=== PATIENT | female | born 1980 | race Caucasian/White ===

== ENCOUNTER 2023-12-23 05:11 | Emergency (ER) | payer BC, SELFPAY ==
[2023-12-23 05:14] VITALS: BP 111/73
[2023-12-23 05:27] VITALS: BMI 21.1
[2023-12-23 05:32] VITALS: BP 100/65
[2023-12-23 06:00] VITALS: BP 91/64
--- NOTE | 2023-12-23 06:00 | ED.GENMED ---
History of Present Illness
General
Chief Complaint: Dizziness
Time Seen by Provider: 12/23/23 05:59
History of Present Illness
History of Present Illness:
HPI: Patient presents with dizziness associated with nausea. She woke up around 2 AM this morning felt unwell and turned and suddenly had dramatic vertiginous symptoms. Her symptoms did spontaneously improve upon arrival here. She did not vomit.
She has no associated headache. She tried the Sergio maneuver at home which seems to have made things worse initially but now feels improved.
EXAM:
GENERAL: Well appearing in no distress
HEENT: Moist oral mucosa
CARDIOVASCULAR: No murmurs, normal heart rate, regular rhythm, No chest wall tenderness
PULMONARY: No respiratory distress, breath sounds are clear and equal
ABDOMEN: Soft with no peritoneal signs, no tenderness
NEUROLOGIC: Excellent strength all extremities, no coordination deficits, normal finger-nose testing, no spontaneous nystagmus
PSYCHIATRIC: Appropriate mental status, normal insight and judgement
EXTREMITIES: Nontender, no edema, moves all extremities equally
SKIN: No rash, no lesions
TIME OF INITIAL ENCOUNTER: 6:05 AM
NUMBER AND COMPLEXITY OF PROBLEMS ADDRESSED AT THE ENCOUNTER
� Chronic conditions affecting care: Hypothyroidism
� Acute Exacerbation and/or Progression of Chronic Illness: This is an acute problem
� Differential Diagnosis includes: BPPV, CVA very unlike, dissection very unlikely
AMOUNT AND/OR COMPLEXITY OF DATA TO BE REVIEWED AND ANALYZED
� I performed an independent evaluation of and my interpretation is:
EKG:
CT:
X-rays:
Laboratory Studies: CBC unremarkable, chemistries unremarkable
Other:
� Review of other/old records: No old records available for review in [facility]
� Clinical information was obtained by an independent historian: I spoke to the at bedside
� Prescriptions/Medications Considered but not given: Considered meclizine
� Further testing considered but not performed: Considered [place]-Hallpike maneuver however given the patient's severe symptoms earlier she preferred to hold off on any testing that could make her symptoms recur/worsen
RISK OF COMPLICATIONS AND/OR MORBIDITY OR MORTALITY OF PATIENT MANAGEMENT
� Social determinants of health affecting care: Lives at home with family
� Discussion with other providers:
� Escalation of care including admission/observation vs risk of discharge considered: Based on the patient's description of what happened this morning, strongly suspect BPPV. She wanted to hold off on [place]-Hallpike maneuver. Her
neurologic examination is unremarkable. Of note, the patient's blood pressure is low however the patient states that her blood pressure is frequently in the 90-100 range. She was able to walk in the emergency department without any difficulty.
Phy Exam
Physical Exam
Physical Exam:
See HPI
Course
Orders/Labs/Results
Orders:
Orders
12/23/23 05:53
Complete Blood Count/With Diff Urgent
Comprehensive Metabolic Panel Urgent
Abnormal Lab Results
12/23/23
05:53
Hct 36.3 L %
(37.0-47.0)
MCV 78.4 L fL
(81.0-99.0)
Lymphocytes % 19.8 L %
(20.5-51.1)
Glucose 102 H mg/dl
(70-99)
12/23/23 05:53
12/23/23 05:53
Vital Signs
Initial and Last Documented VS:
Initial Vital Signs
Temp Pulse Resp BP Pulse Ox
97.9 F 70 14 111/73 100
12/23/23 05:14 12/23/23 05:14 12/23/23 05:14 12/23/23 05:14 12/23/23 05:14
Last Documented Vital Signs
Temp Pulse Resp BP Pulse Ox
97.9 F 70 14 91/64 98
12/23/23 05:14 12/23/23 05:14 12/23/23 05:14 12/23/23 06:00 12/23/23 06:15
*Critical Care Note
Total Time (30-74mins, 75-104mins- exclusive of procedures): Not Applicable
ED Attending Note
-
Portions of this chart may have been created with voice recognition software.� Occasional wrong word or��sound alike� substitutions may have occurred due to the inherent limitations of voice recognition software.
Discharge Plan
Departure
Patient Disposition: Home (Routine Discharge)
Date of Disposition: 12/23/23
Time of Disposition: 06:54
Patient with high blood pressure during this ER visit?: Yes
Discharge Problem:
Benign paroxysmal positional vertigo
Instructions: Vestibular Exercises, Vertigo ED
Referrals:
Renée Bowman CRNP [Family Provider] -
Agustín Deng MD [Active] - Follow up in 10 days
Activity Restrictions/Additional Instructions:
Consider following up with ENT such as Dr. Deng if symptoms persist/worsen. I think would be reasonable to try the Sergio maneuver again in the future. Consider Unisom/doxylamine to help sleep as this type of medication frequently helps with
vertigo as well. Return here if worse or other concerns. Electrolytes, kidney function, complete blood cell count are all normal.
Interventions
Interventions:
*Risk Screen - Suicide Last Done: 12/23/23 05:14
*General Assessment Last Done: 12/23/23 05:14
*Neglect/Abuse Screening Last Done: 12/23/23 05:14
ED- Fall Risk Assessment Last Done: 12/23/23 05:14
*ED COVID-19 Vaccine History Last Done: 12/23/23 05:14
*Nursing Disposition Last Done: 12/23/23 07:09
ED- Neurological Assessment Last Done: 12/23/23 05:27
ED Swallowing Screen Last Done: 12/23/23 05:55
Discharge Date and Time
Discharge Date/Time: 12/23/23 07:10
Print Language: DANISH
[2023-12-23 06:01] LABS: % Eosinophils 0.5 % (0-6); % Immature Granulocytes 0.3 % (0-0.5); % Lymphocytes 19.8 % (20.5-51.1); % Monocytes 5.4 % (1.7-9.3); Absolute Basophils 0.1 10^3/uL (0-0.2); Absolute Lymphocytes 1.5 10^3/uL (1.2-3.4); Absolute Monocytes 0.4 10^3/uL (0.1-0.6); Absolute Neutrophils 5.7 10^3/uL (1.4-6.5); Hematocrit 36.3 % (37.0-47.0); Hemoglobin 12.5 g/dL (12.0-16.0); Mean Corp Hgb Conc. 34.4 g/dL (33.0-37.0); Mean Corpuscular Volume 78.4 fL (81.0-99.0); Nucleated Red Blood Cells % 0 %; Platelet Count 237 10^3/uL (130-400); Red Blood Cell Count 4.63 10^6/uL (4.20-5.40); Red Cell Dist. Width 13.2 % (11.5-14.5); White Blood Cell Count 7.7 10^3/uL (4.8-10.8)
[2023-12-23 06:51] LABS: ALT (SGPT) 14 U/L (0-35); AST (SGOT) 24 U/L (14-36); Albumin 4.2 g/dl (3.5-5.0); Alkaline Phosphatase 66 U/L (38-126); Blood Urea Nitrogen 12 mg/dl (7-17); Carbon Dioxide 23 mmol/L (22-30); Chloride 106 mmol/L (98-107); Estimated Creatinine Clearance 101 ml/min; Glucose 102 mg/dl (70-99); Potassium 3.9 mmol/L (3.5-5.1); Sodium 139 mmol/L (135-145); Total Bilirubin 0.5 mg/dl (0.2-1.3); Total Protein 6.4 g/dl (6.3-8.2); eGFR > 60.00
== END 2023-12-23 07:10 | disposition home or self-care (01) ==
LOC: EMR 05:11
PROVIDERS: Student in an Organized Health Care Education/Training Program; EMERGENCY PHYSICIAN Emergency Medicine; FAMILY PHYSICIAN Nurse Practitioner Family
DX: H81.10 Benign paroxysmal vertigo, unspecified ear (principal); R11.0 Nausea; R03.0 Elevated blood-pressure reading, without diagnosis of hypertension; E03.9 Hypothyroidism, unspecified
CPT/HCPCS: 99283; 80053; 85025

== ENCOUNTER 2024-04-03 02:22 | Emergency (ER) | payer BC, SELFPAY ==
[2024-04-03 02:28] VITALS: BP 106/66
[2024-04-03 02:50] LABS: Urine Albumin Trace (Neg - Trace); Urine Bilirubin Negative (Negative); Urine Character Clear (Clear); Urine Color Yellow; Urine Glucose Negative (Negative); Urine Ketone Negative (Negative); Urine Leukocyte 2+ (Negative); Urine Nitrite Negative (Negative); Urine Occult Blood 4+ (Negative); Urine Urobilinogen Negative (Neg - 1+)
[2024-04-03 02:58] LABS: Hematocrit 39.9 % (37.0-47.0); Hemoglobin 13.6 g/dL (12.0-16.0); Mean Corp Hgb Conc. 34.1 g/dL (33.0-37.0); Mean Corpuscular Volume 82.1 fL (81.0-99.0); Mean Platelet Volume 10.3 fL (7.4-10.4); Platelet Count 273 10^3/uL (130-400); Red Blood Cell Count 4.86 10^6/uL (4.20-5.40); Red Cell Dist. Width 12.7 % (11.5-14.5); White Blood Cell Count 15.3 10^3/uL (4.8-10.8)
[2024-04-03 03:02] LABS: Blood Urea Nitrogen 11 mg/dl (7-17); Calcium 9.4 mg/dl (8.4-10.2); Carbon Dioxide 26 mmol/L (22-30); Chloride 102 mmol/L (98-107); Glucose 95 mg/dl (70-99); Potassium 3.9 mmol/L (3.5-5.1); Sodium 138 mmol/L (135-145); eGFR > 60.00
[2024-04-03 03:06] LABS: HCG, Serum Qualitative Screen Negative
[2024-04-03 03:42] LABS: Urine Squamous Cell >30 /LPF (Few)
[2024-04-03 03:45] LABS: Urine Bacteria Few (Negative); Urine Red Blood Cell 80-90 /HPF (0-2); Urine White Cell >100 /HPF (0-5)
--- NOTE | 2024-04-03 04:36 | ED.GENMED ---
History of Present Illness
General
Chief Complaint: Flank Pain
Time Seen by Provider: 04/03/24 04:36
History of Present Illness
History of Present Illness:
TIME OF INITIAL ENCOUNTER: 4:40 AM
HPI: Last night, approximately 12 hours ago, the patient started having some dysuria. She then developed chills and had left flank pain more recently. She is not prone to urinary tract infection. She had been having some abdominal discomfort for
which she had a recent ultrasound and reports no sign of kidney stones.
EXAM:
GENERAL: Well appearing in no distress
HEENT: Moist oral mucosa
CARDIOVASCULAR: No murmurs, normal heart rate, regular rhythm, No chest wall tenderness
PULMONARY: No respiratory distress, breath sounds are clear and equal
ABDOMEN: Soft with no peritoneal signs, minimal if any left CVA tenderness
NEUROLOGIC: Excellent strength all extremities, no coordination deficits
PSYCHIATRIC: Appropriate mental status, normal insight and judgement
EXTREMITIES: Nontender, no edema, moves all extremities equally
SKIN: No rash, no lesions
NUMBER AND COMPLEXITY OF PROBLEMS ADDRESSED AT THE ENCOUNTER
� Chronic conditions affecting care: History of hypothyroidism
� Acute Exacerbation and/or Progression of Chronic Illness: This is an acute problem
� Differential Diagnosis includes: UTI, pyelonephritis, viral syndrome
AMOUNT AND/OR COMPLEXITY OF DATA TO BE REVIEWED AND ANALYZED
� I performed an independent evaluation of and my interpretation is:
EKG:
CT:
X-rays:
Laboratory Studies: White count 15.3, urinalysis shows 4+ blood, 80-90 red cells and greater than 100 white cells
Other:
� Review of other/old records: I reviewed records but old imaging studies were not available for review; white count in December was normal
� Clinical information was obtained by an independent historian: None needed
� Prescriptions/Medications Considered but not given: Declined analgesia
� Further testing considered but not performed: Offered and considered CT imaging of the abdomen pelvis to evaluate for stone however the patient strongly prefers against this
RISK OF COMPLICATIONS AND/OR MORBIDITY OR MORTALITY OF PATIENT MANAGEMENT
� Social determinants of health affecting care: Lives at home
� Discussion with other providers:
� Escalation of care including admission/observation vs risk of discharge considered: The patient does have very large amount of white cells and red cells in the urine. At patient's request, we will hold off on CT imaging to
evaluate for stone as the patient does not have much in the way of pain. Will treat for pyelonephritis as she does have a high white blood cell count. However she is overall very well-appearing.
ANY OTHER UPDATES:
Phy Exam
Physical Exam
Physical Exam:
See HPI
Course
Orders/Labs/Results
Orders:
Orders
04/03/24 02:32
Test Result ONCE
04/03/24 02:39
Basic Metabolic Panel Urgent
Complete Blood Count/No Diff Urgent
HCG, Serum Qualitative Screen Urgent
Urinalysis Urgent
Date Specimen was Collected: 04/03/24
Time Specimen was Collected: 02:32
Urine Microscopic Urgent
Date Specimen was Collected: 04/03/24
Time Specimen was Collected: 02:32
04/03/24 04:44
Ciprofloxacin HCl [Cipro] 500 mg PO NOW STA
Abnormal Lab Results
04/03/24
02:39
WBC 15.3 H 10^3/uL
(4.8-10.8)
Urine Occult Blood 4+ A
(Negative)
Ur Leukocyte Esterase 2+ A
(Negative)
Urine RBC 80-90 A /HPF
(0-2)
Urine WBC >100 A /HPF
(0-5)
Urine Bacteria Few A
(Negative)
04/03/24 02:39
04/03/24 02:39
Vital Signs
Initial and Last Documented VS:
Initial Vital Signs
Temp Pulse Resp BP Pulse Ox
36.9 C 84 18 106/66 98
04/03/24 02:28 04/03/24 02:28 04/03/24 02:28 04/03/24 02:28 04/03/24 02:28
Last Documented Vital Signs
Temp Pulse Resp BP Pulse Ox
36.9 C 84 18 106/66 98
04/03/24 02:28 04/03/24 02:28 04/03/24 02:28 04/03/24 02:28 04/03/24 02:28
*Critical Care Note
Total Time (30-74mins, 75-104mins- exclusive of procedures): Not Applicable
ED Attending Note
-
Portions of this chart may have been created with voice recognition software.� Occasional wrong word or��sound alike� substitutions may have occurred due to the inherent limitations of voice recognition software.
Discharge Plan
Departure
Patient Disposition: Home (Routine Discharge)
Date of Disposition: 04/03/24
Time of Disposition: 04:45
Patient with high blood pressure during this ER visit?: Yes
Discharge Problem:
Pyelonephritis
Instructions: Urinary tract infections in adults, Flank Pain (DC)
Prescriptions:
New
ciprofloxacin HCl 500 mg tablet
500 mg PO BID Qty: 14 0RF
Activity Restrictions/Additional Instructions:
I recommend taking Tylenol and/or Motrin for pain/fever/chills. Your white blood cell count is high at 15.3. test is negative, kidney function is normal, urinalysis shows signs of infection but also shows some blood. I have placed you
on Cipro. Return here if worse or other concerns.
Interventions
Interventions:
*Risk Screen - Suicide Last Done: 04/03/24 02:28
*Neglect/Abuse Screening Last Done: 04/03/24 02:28
Discharge Date and Time
Print Language: EGYPTIAN
[2024-04-03] MEDS: CIPRO 500 MG PO (05:05)
[2024-04-03 05:13] VITALS: BP 112/99
== END 2024-04-03 05:20 | disposition home or self-care (01) ==
LOC: EMR 02:22
PROVIDERS: EMERGENCY PHYSICIAN Emergency Medicine; FAMILY PHYSICIAN Nurse Practitioner Family
DX: N12 Tubulo-interstitial nephritis, not specified as acute or chronic (principal)
CPT/HCPCS: 99283; 80048; 81003; 81015; 84703; 85027